=== PATIENT | female | born 1980 | race Caucasian/White ===

== ENCOUNTER 2021-01-09 16:30 | Emergency (ER) | payer OTHER, SELFPAY ==
--- NOTE | ~2021-01-09 | XR_ITS ---
EXAMINATION: XR foot LT min 3V DATE: 01/09/2021 16:52 INDICATION: Left foot pain TECHNIQUE: Dorsoplantar, lateral, and 2 oblique views of the left foot were obtained. COMPARISON: None. FINDINGS: There is no fracture, dislocation, or subluxation. 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 A plantar calcaneal enthesophyte is noted. IMPRESSION: 1. No acute osseous abnormality. Reviewed, dictated and finalized at location B.
[2021-01-09 16:40] VITALS: BP 131/94; PULSE 95; RESP 16; TEMP 36.6; O2SAT 100
--- NOTE | 2021-01-09 16:41 | ED.LOWEXIN ---
HPI - Extremity Injury (Lower) General Chief Complaint: Extremity Problem,Nontraumatic Stated Complaint: Left foot Pain Time Seen by Provider: 01/09/21 16:44 Source: patient and RN notes reviewed Mode of arrival: ambulatory Limitations: no limitations History of Present Illness HPI Narrative: 40-year-old female presents to the [facility] with left foot pain lateral aspect for the last 2 weeks. Has gradually gotten worse. Denies any injury. No swelling or signs of infection. Related Data Home Medications Medication Instructions Recorded Confirmed levothyroxine 88 mcg PO DAILY 01/09/21 01/09/21 sertraline 100 mg PO DAILY 01/09/21 01/09/21 Allergies Allergy/AdvReac Type Severity Reaction Status Date / Time No Known Allergies Allergy Verified 01/09/21 16:47 Review of Systems Review of Systems: All systems reviewed & are unremarkable except as noted in HPI and below Constitutional: Constitutional: Reports no additional constitutional complaints, Denies chills and Denies fever(s) Eyes: Eyes: Reports no additional eye complaints ENT: Reports system reviewed and no additional complaints, except as documented Cardiovascular: Cardiovascular: Reports no additional cardiovascular complaints Respiratory: Respiratory: Reports no additional respiratory complaints Musculoskeletal: Musculoskeletal: Reports as per HPI Comments: Left foot pain x2 weeks Integumentary/Breasts: Skin/Breast: Reports system reviewed and no additional complaints, except as docu, Denies pruritus and Denies rash Neurologic: Reports system reviewed and no additional complaints, except as documented Psychiatric: Psychiatric: Reports no additional psychiatric complaints Allergic/Immunologic: Allergic/Immunologic: Reports no additional allergic/immunologic complaints [facility] Past Medical History Medical History (Updated 01/10/21 @ 18:10 by Yudith Gallagher) Thyroid disease Comments At the time of my signature, I reviewed and agree with the nursing past medical, surgical, social, and family history. There is no relevant family history pertinent to the patient complaint. Exam Const: General: healthy appearing, no acute distress and alert Nutritional Appearance: well nourished Orientation/consciousness: patient oriented x3 Limitations: no limitations HENMT: Head: normal to inspection Eyes: Pupils: Equal, round and reactive pupils present Neck: Neck: normal visual inspection, no lymphadenopathy and no meningeal signs Chest: Chest palpation & inspection: normal inspection of the chest Resp: Effort & Inspection: normal respiratory effort Auscultation: clear to auscultation bilaterally Cardio: Rate: regular rate Rhythm: regular rhythm : General: Yes no CVA tenderness Back/Spine/Pelvis: Back: no CVA tenderness Skin: General skin exam: normal color Rashes: no rashes Wounds: no wounds Neuro: General: patient oriented x3, moves all extremities, no meningeal signs and no focal motor deficits Speech: normal speech Gait exam (Neuro): Normal gait present Extrem: Left lower extremity: foot Details: normal capillary refill, normal to inspection, tenderness, toes with normal ROM, no edema and motor-sensory exam; no ecchymosis Psych: Appearance: grossly normal and well kempt Mental Status: mental status grossly normal Affect: normal affect Attitude: cooperative Thought content: Yes Normal thought content present Course Course Emergency Course: Discharge instructions reviewed with patient, as well as provided in writing per nursing staff. The instructions also include specific and strict return/GO TO THE ER as well as f/u information. All questions have been answered, and the patient deny any further questions with discharge and discharge plan. Vital Signs Vital signs: Vital Signs Temperature 97.8 F 01/09/21 16:40 Pulse Rate 95 01/09/21 16:40 Respiratory Rate 16 01/09/21 16:40 Blood Pressure 131/94 H 01/09/21 16:40 Pulse
== END 2021-01-09 17:27 | disposition home or self-care (01) ==
PROVIDERS: Emergency Provider Nurse Practitioner
DX: M79.672 Pain in left foot (principal); E03.9 Hypothyroidism, unspecified; F32.9 Major depressive disorder, single episode, unspecified; F41.9 Anxiety disorder, unspecified
CPT/HCPCS: 73630; 99213; G0463

== ENCOUNTER 2021-11-29 16:41 | Emergency (ER) | payer OTHER, SELFPAY ==
--- NOTE | ~2021-11-29 | XR_ITS ---
Z EXAM: XR forearm LT 2V DATE: 11/29/2021 17:23 HISTORY: dog bite TODAY, SWELLING/ BRUSING TO MEDIAL SIDE . COMPARISON: None available. FINDINGS: Normal mineralization. No fracture or dislocation. No lytic or blastic lesion. Joint space s are maintained. No erosion or periosteal change. Subcutaneous emphysema over the anteromedial soft tissues. IMPRESSION: No acute osseous finding in the left forearm. Reviewed, dictated and finalized at location K.
[2021-11-29 16:48] VITALS: BP 148/105; PULSE 114; RESP 20; TEMP 36.8; O2SAT 97
--- NOTE | 2021-11-29 17:30 | PC.NURSE ---
Per DARY Mayers, give 4mg Zofran ODT via verbal order read-back.
[2021-11-29] MEDS: ONDANSETRON HCL ODT 4 MG TABLET (17:37)
[2021-11-29] MEDS: HYDROcodone/acetaminophen (*CRX) 5-325 MG TABLET 1 TAB PO (17:37)
--- NOTE | 2021-11-29 18:19 | ED.WOUNDLAC ---
HPI - Wound/Laceration General Chief Complaint: Wound/Laceration Stated Complaint: dog bite to LUE Time Seen by Provider: 11/29/21 17:08 Source: patient Mode of arrival: ambulatory Limitations: no limitations History of Present Illness HPI narrative: This is a 40-year-old female that presents to the emergency department after a dog bite to the left arm sustained just prior to arrival. Reports she was trying to break up her dogs fighting and sustained lacerations to the left forearm. Reports bleeding and pain to the area. She is up-to-date on tetanus. Her dogs are up-to-date on their vaccinations. Denies decreased range of motion or numbness. Related Data Home Medications Medication Instructions Recorded Confirmed levothyroxine 88 mcg tablet 88 mcg PO DAILY 01/09/21 01/09/21 cyclobenzaprine 5 mg tablet tablet 11/29/21 11/29/21 escitalopram oxalate 20 mg tablet tablet 11/29/21 Allergies Allergy/AdvReac Type Severity Reaction Status Date / Time No Known Allergies Allergy Verified 11/29/21 16:56 Review of Systems Review of Systems: CONSTITUTIONAL: Denies fever SKIN: Reports laceration MUSCULOSKELETAL: Reports joint pain, and myalgia. NEUROLOGIC: Denies numbness, or weakness. All systems reviewed & are unremarkable except as noted in HPI and below PMFSH Past Medical History Medical History (Updated 11/29/21 @ 18:26 by Riana Lee PA-C) History of anxiety Thyroid disease Social History Social History (Updated 11/29/21 @ 18:20 by Riana Lee PA-C) Substance use: never Exam Narrative: GENERAL: Well-appearing, well-nourished, and in no acute distress. HEAD: Normocephalic, atraumatic. EYES: EOMI. EXTREMITIES: Normal range of motion. Mild edema about the left forearm. Normal radial pulse. Normal sensation. Multiple puncture wounds present to the left forearm. 2 larger lacerations into subcutaneous tissue to the left forearm SKIN: Warm, dry, no rash. NEURO: No focal deficits. Alert and oriented x3. PSYCH: Normal mood and affect Course Vital Signs Vital signs: Vital Signs Temperature 98.3 F 11/29/21 16:48 Pulse Rate 114 H 11/29/21 16:48 Respiratory Rate 20 11/29/21 16:48 Blood Pressure 148/105 H 11/29/21 16:48 Pulse Oximetry 97 11/29/21 16:48 Oxygen Delivery Room Air 11/29/21 16:48 Temperature 98.3 F 11/29/21 16:48 Pulse Rate 114 H 11/29/21 16:48 Respiratory Rate 20 11/29/21 16:48 Blood Pressure 148/105 H 11/29/21 16:48 Pulse Oximetry 97 11/29/21 16:48 Oxygen Delivery Room Air 11/29/21 16:48 Procedures Laceration Laceration 1: Date: 11/29/21 Time: 18:24 Site: upper extremity Side (If applicable): left Description: linear and other (puncture) Depth: simple, single layer Local Anesthetic: lidocaine 1% and with epi Amount of anesthesia used (mL): 8 Pre-repair: irrigated extensively ====== Skin Level ====== Skin layer closed with: steri strips ====== Subcutaneous Layer ====== ====== Muscle Layer ====== ====== Tendon Layer ====== MDM - Wound/Laceration MDM Narrative Medical decision making narrative: Patient presents to the emergency department for dog bite sustained just prior to arrival. She is up to date on vaccinations. Her dog is also up to date on it's vaccinations. Her wounds were thoroughly irrigated and loosely approximated with some Steri-Strips. She was educated on wound care. Left forearm x-ray without acute osseous abnormalities. She is to follow-up with her primary care doctor. She will be given plastics for follow-up if needed. She was given warnings to return to the ER Imaging Data Radiologist's impression: ITS Impressions Forearm X-Ray 11/29/21 17:24 IMPRESSION: No acute osseous finding in the left forearm. Critical Care Time Critical Care Time Critical Care Time: No Discharge Plan Discharge Clinica
[2021-11-29] MEDS: AMOXICILLIN/CLAVULANATE K 875-125 MG TAB 1 TABLET PO (18:49)
== END 2021-11-29 19:04 | disposition home or self-care (01) ==
PROVIDERS: Emergency Provider Emergency Medicine; PCP Physician Assistant
DX: S51.852A Open bite of left forearm, initial encounter (principal); W54.0XXA Bitten by dog, initial encounter; F41.9 Anxiety disorder, unspecified; E07.9 Disorder of thyroid, unspecified
CPT/HCPCS: 73090; 99283; A4565; A9270

== ENCOUNTER 2022-12-07 10:07 | Emergency (ER) | payer OTHER, SELFPAY ==
[2022-12-07 10:07] VITALS: BP 140/91; PULSE 108; RESP 20; TEMP 36.9; O2SAT 99
[2022-12-07] MEDS: EPINEPHrine HCL INJ 1 MG/ML AMPUL 0.3 MG IM (10:25)
[2022-12-07] MEDS: methylPREDNISolone SOD SUCC 125 MG VIAL IV PUSH (10:26)
[2022-12-07] MEDS: FAMOTIDINE 20 MG/2 ML VIAL IV PUSH (10:26)
[2022-12-07] MEDS: diphenhydrAMINE HCl INJ 50 MG/ML VIAL IV PUSH (10:27)
--- NOTE | 2022-12-07 10:48 | ED.ALLEREA ---
HPI - Allergic Reaction General Chief complaint: Allergic Reaction Stated complaint: Allergic reaction to rx Time Seen by Provider: 12/07/22 10:22 Source: patient and family Mode of arrival: ambulatory Limitations: no limitations History of Present Illness HPI narrative: Patient was sleeping with her dog the night before, wake up in the morning with itching, burning skin rash different parts of her body. History of poison chelsey allergy. She denies difficulty breathing or swallowing. Referred to our emergency room by her family physician. Related Data Home Medications Medication Instructions Recorded Confirmed levothyroxine 88 mcg tablet 88 mcg PO DAILY 01/09/21 01/09/21 cyclobenzaprine 5 mg tablet tablet 11/29/21 11/29/21 escitalopram oxalate 20 mg tablet tablet 11/29/21 Allergies Allergy/AdvReac Type Severity Reaction Status Date / Time No Known Allergies Allergy Verified 12/07/22 10:28 Review of Systems Review of Systems: All systems reviewed & are unremarkable except as noted in HPI and below PMFSH Past Medical History Medical History History of anxiety Thyroid disease Social History Social History Substance use: never Exam Narrative: General appearance: Well-developed, well-nourished Skin: Scattered area of erythema, maculopapular, chest, upper back, upper and lower extremities. Head: Normocephalic, nontraumatic Eyes: Clear conjunctiva ENT: Oropharynx normal, ears normal, nose normal Neck: Supple, nontender Chest and respiratory: Airway patent, no respiratory distress, no accessory muscle use Heart: Regular rate/rhythm Abdomen: Soft, nontender, no organomegaly, quiet bowel sounds Vascular: Normal peripheral pulses, normal capillary refill. Musculoskeletal: Normal range of motion, nontender back Neurologic: Alert and oriented ?3, [employer]ICAL APPLICATION CONSULTANT is normal as tested, no gross motor deficit Course Reevaluation(s) Reevaluation #1: Remarkable improvement of itching after epinephrine Currently complaining of dizziness, blurry vision and headache high likely secondary to 50 mg of Benadryl IV. Toradol 30 mg IV ordered. Date: 12/07/22 Time: 10:51 Vital Signs Vital signs: Vital Signs Temperature 36.9 C 12/07/22 10:07 Pulse Rate 108 H 12/07/22 10:07 Respiratory Rate 20 12/07/22 10:07 Blood Pressure 140/91 H 12/07/22 10:07 Pulse Oximetry 99 12/07/22 10:07 Oxygen Delivery Room Air 12/07/22 10:07 Temperature 36.9 C 12/07/22 10:07 Pulse Rate 108 H 12/07/22 10:07 Respiratory Rate 20 12/07/22 10:07 Blood Pressure 140/91 H 12/07/22 10:07 Pulse Oximetry 99 12/07/22 10:07 Oxygen Delivery Room Air 12/07/22 10:07 MDM - Allergic Reaction MDM Narrative Medical decision making narrative: Contact dermatitis is my concern. Patient was sleeping with the dog. Dog have a lot of activity outdoors. Patient presents with scattered area of itching, burning, erythema and maculopapular rash. No respiratory symptoms. Patient received epinephrine IM, Solu-Medrol IV, Benadryl IV, Pepcid IV. With gradual improvement. Patient developed blurry vision and dizziness with slight headache after 50 mg of Benadryl IV. 30 mg of Toradol IV given with remarkable improvement of the headache. Within 20 minutes patient's rash started fading, feels much better and ready to go home. Patient was advised to not to sleep with the dog and wash the dog when she gets home Differential Diagnosis Differential diagnosis: Likely allergic reaction and contact dermatitis Critical Care Time Critical Care Time Critical Care Primo
[2022-12-07] MEDS: KETOROLAC 30 MG/ML VIAL (*BKC) IV PUSH (11:32)
[2022-12-07 11:47] VITALS: BP 138/86; PULSE 88; RESP 16; O2SAT 99
== END 2022-12-07 11:56 | disposition home or self-care (01) ==
PROVIDERS: Emergency Provider Emergency Medicine; PCP Physician Assistant
DX: T78.40XA Allergy, unspecified, initial encounter (principal); F41.9 Anxiety disorder, unspecified; E07.9 Disorder of thyroid, unspecified
CPT/HCPCS: 96372; 96374; 96375; 99284; J0171; J1200; J1885; J2930

== ENCOUNTER 2024-05-29 18:08 | Emergency (ER) | payer OTHER, SELFPAY ==
[2024-05-29 18:20] VITALS: BP 130/92; PULSE 108; RESP 18; TEMP 38.8; O2SAT 98
--- NOTE | 2024-05-29 18:41 | ED_ITS ---
HPI - URI/Sore Throat General Chief Complaint: Upper Respiratory Infection Stated Complaint: Fever/Bodyaches Time Seen by Provider: 05/29/24 18:23 Source: patient Mode of arrival: ambulatory Limitations: no limitations History of Present Illness HPI Narrative: Alesia is a 43-year-old female patient presenting to the clinic today with complaints fever, cough, and body aches for the past 3 days. Denies any chest pain or shortness of breath. MD elicited complaint: fever, cough and nasal congestion Related Data Home Medications ?Medication ?Instructions ?Recorded ?Confirmed ?Last Taken ?Type escitalopram oxalate 20 mg tablet 20 mg PO .QD 11/29/21 05/29/24 Unknown History clonazepam 0.25 mg disintegrating 0.25 mg PO .QD 05/29/24 05/29/24 Unknown History tablet meloxicam 15 mg tablet 15 mg PO 05/29/24 Unknown History Allergies Allergy/AdvReac Type Severity Reaction Status Date / Time nitrofurantoin (From Allergy Severe Swelling Verified 05/29/24 18:29 Macrobid) of Lip/Tongue/Throat Review of Systems Review of Systems: Pertinent positives per HPI. Patient denies any fever, chills, rash, headache, visual changes, dizziness, cough, shortness of breath, chest pain, palpitations, nausea, vomiting, diarrhea, constipation, abdominal pain, or any urinary issues. PMFSH Past Medical History Medical History History of anxiety Thyroid disease Social History Social History Substance use: never Comments At the time of my signature, I reviewed and agree with the nursing past medical, surgical, social, and family history. There is no relevant family history pertinent to the patient complaint. Exam Narrative: General: Well-developed, well nourished, in no apparent distress Head: Normocephalic, atraumatic Eyes: Pupils equally round and reactive to light bilaterally, EOM intact, sclera and conjunctive clear, no discharge, lids normal Ears: TMs intact and congested, ear canals clear, no drainage, grossly hearing normal. Nose: Nares patent, clear nasal discharge, no inflammation, no sinus tenderness. Mouth: Oral pharynx without lesions or masses, good dentition, MMM. Postnasal drip Neck: Supple, trachea midline, no enlargement of anterior or posterior cervical nodes, no thyroid masses or goiter palpable. Cardio: Regular rate and rhythm, s1 and s2 normal, no murmur appreciated. Resp: Clear to auscultation bilaterally, no rhonchi, rales, wheezing or rubs Course Course Emergency Course: Portions of this record may have been created with voice recognition software. Level of Care: Express Care Visit Vital Signs Vital signs: Vital Signs Temperature 38.8 C H 05/29/24 18:20 Pulse Rate 108 H 05/29/24 18:20 Respiratory Rate 18 05/29/24 18:20 Blood Pressure 130/92 H 05/29/24 18:20 Pulse Oximetry 98 05/29/24 18:20 Oxygen Delivery Room Air 05/29/24 18:20 Temperature 38.8 C H 05/29/24 18:20 Pulse Rate 108 H 05/29/24 18:20 Respiratory Rate 18 05/29/24 18:20 Blood Pressure 130/92 H 05/29/24 18:20 Pulse Oximetry 98 05/29/24 18:20 Oxygen Delivery Room Air 05/29/24 18:20 Vital signs reviewed MDM - URI/Sore Throat MDM Narrative Medical decision making narrative: At the time of visit patient is resting comfortably on the exam table. Patient appears to be nontoxic. Labs: COVID and influenza testing was performed. COVID testing was negative and influenza testing was positive. Plan: Patient has influenza A. Supportive measures were discussed with the patient and they voiced understanding discharge instructions and agrees to treatment plan. Return precautions reviewed Differential Diagnosis Differential diagnosis: Likely upper respiratory infection, otitis media, sinusitis, viral infection, bronchitis, influenza, pharyngitis and other (COVID) Discharge Plan Discharge Clinical Impression: Influenza A Patient Disposition: Home, Self-Care Condition: Stable Instructions: Antibiotic Form, Influenza (ED) Additional Instructions: Influenza A testing is positive in the clinic today. Increase fluids and stay well hydrated Tylenol/motrin for pain/fever Flonase and OTC antihistamines as directed Vicks vapor rub to open sinuses Sinus rinses for congestion Cepacol spray, cough drops, throat lozenges, warm tea with honey/lemon, gargle salt water to soothe throat BRAT diet for diarrhea Clear liquids x 24 hours then advance as tolerated for nausea/vomiting Go to the ED if you develop a worsening in your condition- high fever not controlled by Tylenol or Motrin, dehydration, weakness, lethargy, shortness of breath, or chest pain. Follow up with your PCP in 3-5 days if symptoms persist. Patient Language: [place] Prescriptions: No Action clonazepam 0.25 mg tablet,disintegrating 0.25 mg PO .QD meloxicam 15 mg tablet 15 mg PO escitalopram oxalate 20 mg tablet 20 mg PO .QD Zyrtec 10 mg capsule 10 mg PO BID PRN (Reason: allergy symptoms) Qty: 30 0RF Follow-up/Referrals: Gisel,DARY Rico [Primary Care Provider] - Stand Alone Forms: Work/School Release IP Time of Disposition: 18:42 Quality NIHSS Nursing Documentation ED NIHSS nursing documentation: reviewed/agree
[2024-05-29 18:43] LABS: EDCOVIDSCREEN Negative (Negative)
[2024-05-29 18:43] LABS: EDINFLUASCREEN Positive (Negative); EDINFLUBSCREEN Negative (Negative); EDSTREPNEGPOS1 Negative (Negative)
== END 2024-05-29 18:46 | disposition home or self-care (01) ==
PROVIDERS: Emergency Provider Nurse Practitioner Family; PCP Physician Assistant
DX: J10.1 Influenza due to other identified influenza virus with other respiratory manifestations (principal); Z79.1 Long term (current) use of non-steroidal anti-inflammatories (NSAID); Z79.899 Other long term (current) drug therapy; Z20.822 Contact with and (suspected) exposure to COVID-19
CPT/HCPCS: 87081; 87426; 87804; 87880; 99213; G0463

== ENCOUNTER → 2024-12-28 12:26 | Outpatient (CLI) | payer OTHER, SELFPAY ==
--- NOTE | ~2024-12-28 | XR_ITS ---
XR ankle RT min 3V, XR foot RT min 3V 12/28/2024 12:45 Indication: Right foot and ankle pain after fall Procedure: 4 views right ankle and 4 views right foot Comparison: No prior studies for comparison. Findings: There is osteoarthritis of the first MTP joint. Lisfranc joint intact. No soft tissue abnor mality. No foreign bodies. There are ossific densities adjacent to the lateral margin of the talonavicular joint on the oblique view, suspicious for avulsion fracture. Correlate for point tenderness. Ankle mortise intact. There i s a nondisplaced fracture proximal aspect of the fifth metatarsal. Impression: 1: Ossific densities adjacent to the lateral margin talonavicular joint, suspicious for avulsion frac tures, correlate for point tenderness. 2: Nondisplaced fracture proximal aspect of the fifth metatarsal. Reviewed, dictated and finalized at location B. Impression: 1: Ossific densities adjacent to the lateral margin talonavicular joint, suspic ious for avulsion fractures, correlate for point tenderness. 2: Nondisplaced fracture proximal aspect of the fifth metatarsal. Impression: 1: Ossific densities adjacent to the lateral margin talonavicular joint, suspic ious for avulsion fractures, correlate for point tenderness. 2: Nondisplaced fracture proximal aspect of the fifth metatarsal.
== END ==
LOC: EXPCRAD 12:30
PROVIDERS: PCP Physician Assistant; Visit Provider Physician Assistant
DX: S92.354A Nondisplaced fracture of fifth metatarsal bone, right foot, initial encounter for closed fracture (principal); X58.XXXA Exposure to other specified factors, initial encounter; M85.872 Other specified disorders of bone density and structure, left ankle and foot
CPT/HCPCS: 73610; 73630

== ENCOUNTER 2025-04-22 16:24 | Emergency (ER) | payer OTHER, SELFPAY ==
[2025-04-22 16:32] VITALS: BP 145/92; PULSE 92; RESP 18; TEMP 36.3; O2SAT 100
--- NOTE | 2025-04-22 16:52 | ED_ITS ---
HPI - Back Pain/Injury General Chief Complaint: Back Pain/Injury Stated Complaint: lower back pain Time Seen by Provider: 04/22/25 16:30 Source: patient and RN notes reviewed Mode of arrival: ambulatory Limitations: no limitations History of Present Illness HPI Narrative: A 44-year-old female presents Express Care complaining of low back pain for approximately 4 days. Patient said she went to bend down the grab a paper clip when she felt a pull in her lower back. Since then the patient has had pain in her lower back. Patient denies any falls or other injuries. Patient denies any radiating pain. Patient says the pain is worse with certain movements of her lower back. Patient denies any saddle anesthesia, loss of bowel or bladder function, leg weakness, shooting pain, any other symptoms. Patient denies any history of back problems reports a history of neck problems. Patient has been taking meloxicam, muscle relaxers, without relief. Patient ran out of her meloxicam and has been taking Naprosyn and instead until she can get her meloxicam refilled by her doctor. Patient denies any significant past medical problems. Related Data Home Medications ?Medication ?Instructions ?Recorded ?Confirmed ?Last Taken ?Type escitalopram oxalate 20 mg tablet 20 mg PO .QD 2 05/29/24 Unknown History clonazepam 0.25 mg disintegrating 0.25 mg PO .QD 05/2905/29/24 Unknown History tablet meloxicam 15 mg tablet 15 mg PO 05/29/24 Unknown H istory Allergies Allergy/AdvReac Type Severity Reaction Status Date / Time nitrofurantoin (From Allergy Severe Swelling Verified 05/29/24 18:29 Macrobid) of Lip/Tongue/Throat Review of Systems Review of Systems: CONSTITUTIONAL: Denies fever, chills, or sweats. EYES: Denies visual changes, redness, or discharge. ENT: Denies rhinorrhea, congestion, sore throat, or otalgia. CARDIOVASCULAR: Denies chest pain, palpitations, or edema. RESPIRATORY: Denies cough or dyspnea. GASTROINTESTINAL: Denies abdominal pain, nausea, vomiting, or diarrhea. GENITOURINARY: Denies dysuria or hematuria. SKIN: Denies rash or itching. MUSCULOSKELETAL: Positive for low back pain. Negative for joint pain, or myalgia. NEUROLOGIC: Denies headache, loss of bowel or bladder function, saddle anesthesia, numbness, or weakness. PSYCHIATRIC: Denies anxiety or depression. All other systems reviewed are negative, except as documented in HPI. [facility], [facility] Past Medical History Medical History History of anxiety Thyroid disease Social History Social History Substance use: never Comments At the time of my signature, I reviewed and agree with the nursing past medical, surgical, social, and family history. There is no relevant family history pertinent to the patient complaint. Exam Narrative: GENERAL: This is a well-nourished, well-developed adult, in no apparent distress. They are non ill-appearing, nontoxic appearing. HEAD: normocephalic, atraumatic. EYES: Sclera clear/white. Conjunctiva normal. Vision is grossly intact. Extraocular movements intact EARS: External ears normal,Hearing grossly intact. NOSE: External nose normal THROAT: Mucous membranes moist, NECK: Neck supple, CARDIOVASCULAR: Regular rate and rhythm RESPIRATORY: Respiratory rate normal, respiratory effort nonlabored, no respiratory distress SKIN: warm, Dry, intact with no suspicious lesions or rash, good texture and turgor. NEURO: awake, alert, and oriented to person, place and time. There were no obvious focal neurologic abnormalities. EXTREMITIES: No joint tenderness, effusion, or edema noted. BACK: Lumbar tenderness to palpation. No cervical, thoracic, or lumbar point tenderness, crepitus, step-offs. No CVA tenderness. Course Course Emergency Course: Portions of this record may have been created with voice recognition software Level of Care: Express Care Visit Vital Signs Vital signs: Vital Signs Temperature 97.3 F L 04/22/25 16:32 Pulse Rate 92 04/22/25 16:32 Respiratory Rate 18 04/22/25 16:32 Blood Pressure 145/92 H 04/22/25 16:32 Pulse Oximetry 100 04/22/25 16:32 Oxygen Delivery Room Air 04/22/25 16:32 Temperature 97.3 F L 04/22/25 16:32 Pulse Rate 92 04/22/25 16:32 Respiratory Rate 18 04/22/25 16:32 Blood Pressure 145/92 H 04/22/25 16:32 Pulse Oximetry 100 04/22/25 16:32 Oxygen Delivery Room Air 04/22/25 16:32 Reviewed MDM - Back Pain/Injury MDM Narrative Medical decision making narrative: Likely patient has a lumbar strain. Will give her a course of prednisone. Discussed supportive care. Discussed physical exam findings. Advised supportive measures and signs/symptoms to go to the ER. Pt is appropriate for outpt treatment and f/u. Differential Diagnosis Differential diagnosis: Likely lumbar radiculopathy, sciatica and strain of lumbar region Critical Care Time Critical Care Time Critical Care Time: No Discharge Plan Discharge Clinical Impression: Strain of lumbar region Qualifiers: Encounter type: initial encounter Qualified Code(s): S39.012A - Strain of muscle, fascia and tendon of lower back, initial encounter Patient Disposition: Home Condition: Stable Instructions: Antibiotic Form, Low Back Strain (ED), Lower Back Exercises (ED) Additional Instructions: Take prednisone as directed. May apply lidocaine patches to affected area, follow the instructions on the packaging. You may leave these on up to 12 hours. You may take ibuprofen 600 mg to 800 mg every 6-8 hours. Do not exceed more than 800 mg of ibuprofen per dose. Do not exceed more than 3200 mg ibuprofen in a day. You may take up to 1000 mg Tylenol every 6-8 hours. Do not exceed 1000 mg per dose, do exceed more than 4000 mg of Tylenol in a day. You may choose to take naproxen sodium. You may take up to 200-500 mg every 12 hours for a max dose 500 mg at a time, no more than a 1000 mg a day. Do not take any other additional NSAIDs with naproxen sodium such as ibuprofen, meloxicam, Naprosyn, Aleve, Motrin, etc. Do not combine any NSAIDs and the time. Please follow-up with your primary care provider if pain persist Rest. Avoid pushing, pulling, lifting --running or excessive walking-- or anyth ing that worsens the symptoms You may try stretching your lower back or doing spinal decompression to help with symptoms. Go to the emergency department if you develop any numbness or tingling to your groin, weakness in your legs, or any loss of bowel or bladder function. Patient Language: Hungarian Prescriptions: New prednisone 20 mg tablet 40 mg PO DAILY 5 Days Qty: 10 0RF No Action clonazepam 0.25 mg tablet,disintegrating 0.25 mg PO .QD meloxicam 15 mg tablet 15 mg PO escitalopram oxalate 20 mg tablet 20 mg PO .QD Zyrtec 10 mg capsule 10 mg PO BID PRN (Reason: allergy symptoms) Qty: 30 0RF Follow-up/Referrals: Gisel,DARY Rico [Primary Care Provider, Unknown] Time of Disposition: 16:51
== END 2025-04-22 16:56 | disposition home or self-care (01) ==
PROVIDERS: PCP Physician Assistant
DX: S39.012A Strain of muscle, fascia and tendon of lower back, initial encounter (principal); X58.XXXA Exposure to other specified factors, initial encounter; E07.9 Disorder of thyroid, unspecified; F41.9 Anxiety disorder, unspecified
CPT/HCPCS: 99213; G0463